=== PATIENT | male | born 1970 | race Caucasian/White ===

== ENCOUNTER 2021-02-09 08:20 | Outpatient (REF) | payer OTHER, SELFPAY ==
--- NOTE | ~2021-02-09 | XR_ITS ---
EXAMINATION: XR SHOULDER, RIGHT CLINICAL INFORMATION: Right shoulder pain. COMPARISON: None TECHNIQUE: AP, scapular Y, and axillary views of the right shoulder. FINDINGS: Small acromioclavicular and glenohumeral marginal osteophytes. No osseous erosion. No fracture or dislocation. No abnormal soft tissue calcification. XR/XR shoulder RT min 2V IMPRESSION: Mild acromioclavicular and glenohumeral osteoarthritis.
== END 2021-02-09 08:21 | disposition home or self-care (01) ==
LOC: HO.HOSX 08:20
PROVIDERS: Visit Provider Orthopaedic Surgery
DX: M25.511 Pain in right shoulder (principal); M75.41 Impingement syndrome of right shoulder
CPT/HCPCS: 73030; 99212